=== PATIENT | female | born 1960 | race Caucasian/White ===

== ENCOUNTER 2022-03-07 10:25 | Outpatient (CLI) | payer OTHER, SELFPAY ==
--- NOTE | 2022-03-07 10:45 | CRLHL7_ITS ---
For Patients: As a result of the Century Cures Act, medical imaging exams and procedure reports are released immediately into your electronic medical record. You may view this report before your referring provider. If you have questions, please contact your health care provider. BILATERAL MAMMOGRAM WITH COMPUTER-AIDED DETECTION AND TOMOSYNTHESIS TECHNIQUE: CC and MLO views were obtained. These mammographic images have been obtained using full-field digital technique. These mammographic images were interpreted with the benefit of computer-aided detection. Breast Tomosynthesis was used in this interpretation. COMPARISON FILM: 09/13/2020, 11/17/2018, 09/23/2017. FINDINGS: There are scattered areas of fibroglandular density IMPRESSION: There is no radiographic evidence for malignancy. ASSESSMENT: BI-RADS Category 1: Negative RECOMMENDATION: Routine screening mammogram in 1 year. A lay language report of this examination will be provided to the patient. Kenny Cortez M.D. Diagnostic Radiologist [email or web address] ERVIN/Dictated by: Kenny Cortez MD @ 03/07/2022 11:48:00 AM (Electronically Signed)
== END 2022-03-07 10:26 | disposition home or self-care (01) ==
LOC: MAMMO 10:26
PROVIDERS: PCP Physician Assistant Medical; Visit Provider Physician Assistant Medical
DX: Z12.31 Encounter for screening mammogram for malignant neoplasm of breast (principal)
CPT/HCPCS: 77063; 77067

== ENCOUNTER 2022-10-01 07:14 | Emergency (ER) | payer OTHER, SELFPAY ==
[2022-10-01 07:26] VITALS: BP 140/81; PULSE 97; RESP 24; TEMP 36.4; O2SAT 91; BMI 26.5
--- NOTE | 2022-10-01 07:50 | CRLHL7_ITS ---
For Patients: As a result of the Cures Act, medical imaging exams and procedure reports are released immediately into your electronic medical record. You may view this report before your referring provider. If you have questions, please contact your health care provider. INDICATION: COVID. Dyspnea. COMPARISON: None TECHNIQUE: Single-view portable study FINDINGS: TUBES AND LINES: None. HEART AND MEDIASTINUM: The heart size is normal. The mediastinal contour appears normal for patient age. LUNGS AND PLEURAL SPACES: The lungs appear normal.The pleural spaces are unremarkable. OSSEOUS STRUCTURES: Age-appropriate appearance. No acute focal finding. IMPRESSION: No evidence of active pulmonary disease. Dictated by Paul Nelson MD @ 10/01/2022 8:34:19 AM (Electronically Signed)
--- NOTE | 2022-10-01 07:50 | ED_ITS ---
HPI - General Adult General Chief complaint: Cough <Naz Shook MD - Last Filed: 10/01/22 08:00> Stated complaint: Covid+ Difficulty breathing, sore throat, cough <Naz Shook MD - Last Filed: 10/01/22 08:00> Time Seen by Provider: 10/01/22 07:40 <Naz Shook MD - Last Filed: 10/01/22 08:00> Source: patient <Naz Shook MD - Last Filed: 10/01/22 08:00> Mode of arrival: ambulatory <Naz Shook MD - Last Filed: 10/01/22 08:00> Limitations: no limitations <Naz Shook MD - Last Filed: 10/01/22 08:00> History of Present Illness HPI narrative: 62-year-old female with no history of chronic lung disease, 3 prior COVID vaccinations presents to the emergency department with increased dyspnea, sore throat and cough. Patient has had a cough since July per her report but had worsening of her cough 5 days ago which was Thursday. She was evaluated in urgent care the following day, on Thursday. She was having ear pain and cough. They started her on azithromycin for her cough, she said that it was based on the duration of the cough. She has continued to take this medication. She did swab herself for COVID on Thursday at home, it was negative. She repeated the test yesterday which is Thursday and it was positive. She states that she gets more short of breath with activity and even with talking for periods of time. She is not monitoring her oxygen levels at home. She has no history of chronic lung disease, smoking, COPD or asthma. She has a history of von Willebrand's disease listed in her chart but she denies a prior history of DVT or PE. She does not take anticoagulants. Fever started yesterday, up to 102 at home. No chest pain, no palpitations or rapid heart rate. No nausea, vomiting. No rash. No other pertinent travel. is having similar symptoms. She has has tried Tylenol with temporary improvement. Past medical history notable for hypertension, hyperlipidemia. She takes lisinopril and a statin medication. She has allergies to sulfas and sumatriptan both causing hives. Denies any pertinent surgeries. Socially she denies tobacco use. Family history is notable for with current similar symptoms. ROS is notable for the generalized, HEENT and respiratory symptoms as above. She also endorses significant fatigue, otherwise denies times 12 systems. <Naz Shook MD - Last Filed: 10/01/22 08:00> Related Data Home medications: Home Medications Medication Instructions Recorded Confirmed B-Complex PO 06/05/22 Calcium PO 06/05/22 Cranberry-Vitamin PO 06/05/22 Magnesium PO 06/05/22 Multiple vitamin PO 06/05/22 Potassium PO 06/05/22 ascorbic acid (vitamin C) 1,000 mg 1 g PO DAILY 06/05/22 06/05/22 tablet lisinopril 10 mg tablet mg PO DAILY 06/05/22 06/05/22 simvastatin 20 mg tablet 20 mg PO .Bedtime 06/05/22 06/05/22 Previous Rx's Medication Instructions Recorded ondansetron HCl 4 mg tablet 4 mg PO Q6-8H PRN nausea and 07/16/22 vomiting #20 tabs topiramate 25 mg tablet (Topamax) 25 mg PO BID #180 tabs 07/16/22 ketorolac 10 mg tablet 10 mg PO TID 3 days #9 tabs 07/23/22 escitalopram oxalate 10 mg tablet See Rx Instructions .Route 08/06/22 .COMPLEX #60 tabs [id number] 30 1 cap PO DAILY PRN headache #15 09/18/22 mg-50 mg-325 mg-40 mg capsule caps (Butalbital Compound with Codeine) azithromycin 250 mg tablet See Rx Instructions PO .COMPLEX #6 09/28/22 tabs <Naz Shook MD - Last Filed: 10/01/22 08:00> Allergies/adverse reactions: Allergies Allergy/AdvReac Type Severity Reaction Status Date / Time iodine Allergy Mild Hives Verified 10/01/22 07:25 Sulfa (Sulfonamide Allergy Mild Hives Verified 10/01/22 07:25 Antibiotics) sumatriptan Allergy Mild Hives Verified 10/01/22 07:25 <Naz Shook MD - Last Filed: 10/01/22 08:00> [facility] Medical History: Medical History hemorrhage <Naz Shook MD - Last Filed: 10/01/22 08:00> Family History: Family History Brother Coronary artery disease Sister Coronary artery disease High cholesterol Mother Heart disease High cholesterol Coronary artery disease <Naz Shook MD - Last Filed: 10/01/22 08:00> Social History: Social History Narrative: former smoker Smoking Status: Never smoker Do you use any of these nicotine containing products: None Second hand tobacco smoke exposure: No How often do you have a drink containing alcohol: 2-3 times a week How many standard drinks containing alcohol do you have on a typical day: 1 or 2 How often do you have six or more drinks on one occasion: Never AUDIT-C Alcohol total score: 3 Non-prescribed substance use: denies use Little interest or pleasure in doing things: not at all Feeling down, depressed, or hopeless: not at all service: No <Naz Shook MD - Last Filed: 10/01/22 08:00> Exam Const: Vital Signs, click to edit/add: Vital Signs - 24 hr 10/01/22 07:26 10/01/22 08:50 Temperature 97.6 F Pulse Rate 90 Pulse Rate [Pulse Oximeter] 97 Respiratory Rate 24 Blood Pressure [Ri ght Upper Arm] 140/81 H Pulse Oximetry 91 92 Oxygen Delivery Me thod Room Air <Naz Shook MD - Last Filed: 10/01/22 08:00> Vital Signs, click to edit/add: Vital Signs - 24 hr 10/01/22 07:26 10/01/22 08:50 Temperature 97.6 F Pulse Rate 90 Pulse Rate [Pulse Oximeter] 97 Respiratory Rate 24 Blood Pressure [Ri ght Upper Arm] 140/81 H Pulse Oximetry 91 92 Oxygen Delivery Me thod Room Air <Steven Bain MD - Last Filed: 10/01/22 09:44> Documenting provider has reviewed patient's vital signs: yes <MD Jewell Garcia Last Filed: 10/01/22 08:00> Common normals: no apparent distress <MD Jewell Garcia Last Filed: 0 10/01/22 08:00> General appearance: cooperative and well kempt <MD Jewell Garcia Last Filed: 10/01/22 08:00> HENMT: Common normals: normocephalic <MD Jewell Garcia Last Filed: 10/01/22 08:00> Head and scalp: normocephalic <MD Jewell Garcia Last Filed: 10/01/22 08:00> Face and sinus: normal facial exam <MD Jewell Garcia Last Filed: 10/01/22 08:00> Eye: Common normals: conjunctivae normal <MD Jewell Garcia Last Filed: 10/01/22 08:00> General eye: normal appearance of both eyes <MD Jewell Garcia Last Filed: 10/01/22 08:00> Conjunctiva: conjunctiva(e) normal <MD Jewell Garcia Last Filed: 10/01/22 08:00> Neck & C-Spine: Common normals: no lymphadenopathy <MD Jewell Garcia Last Filed: 10/01/22 08:00> Resp: Common normals: normal respiratory effort, no use of accessory muscles and clear to auscultation bilaterally <MD Jewell Garcia Last Filed: 10/01/22 08:00> Effort & inspection: able to speak in complete sentences <MD Jewell Garcia Last Filed: 10/01/22 08:00> Auscultation: clear to auscultation bilaterally <MD Jewell Garcia Last Filed: 10/01/22 08:00> Other: Fairly good air movement throughout. Observed during exam, oxygen levels ranging between 91-96. <MD Jewell Garcia Last Filed: 10/01/22 08:00> Cardio: Common normals: regular rate, regular rhythm, S1 normal heart sound, S2 normal heart sound, no murmurs and peripheral pulses 2+ throughout <MD Jewell Garcia Last Filed: 10/01/22 08:00> Rate: regular rate <MD Jewell Garcia Last Filed: 10/01/22 08:00> Rhythm: regular rhythm <MD Jewell Garcia Last Filed: 10/01/22 08:00> Heart sounds: S1 normal and S2 normal <MD Jewell Garcia Last Filed: 10/01/22 08:00> Peripheral pulses: pulses 2+ throughout <MD Jewell Garcia Last Filed: 10/01/22 08:00> GI: Common normals: soft to palpation and no hepatosplenomegaly <MD Jewell Garcia Last Filed: 10/01/22 08:00> Palpation: soft and no hepatosplenomegaly <MD Jewell Garcia Last Filed: 10/01/22 08:00> Extremity: Common normals: normal capillary refill and no pedal edema <MD Jewell Garcia Last Filed: 10/01/22 08:00> Neuro: Speech: speech normal <MD Jewell Garcia Last Filed: 10/01/22 08:00> Motor exam: strength 5/5 throughout and no movement abnormalities noted <MD Jewell Garcia Last Filed: 10/01/22 08:00> Psych: Common normals: mental status grossly normal <MD Jewell Garcia Last Filed: 10/01/22 08:00> Appearance: well kempt <MD Jewell Garcia Last Filed: 10/01/22 08:00> Attitude: engaged <MD Jewell Garcia Last Filed: 10/01/22 08:00> Activity/motor behavior: appropriate eye contact <MD Jewell Garcia Last Filed: 10/01/22 08:00> Attention/concentration: attention grossly intact <MD Jewell Garcia Last Filed: 10/01/22 08:00> Insight: insight good <Naz Shook MD - Last Filed: 10/01/22 08:00> Judgement: judgment good <Naz Shook MD - Last Filed: 10/01/22 08:00> Course Vital Signs Vital signs: Initial Vital Signs Temperature 97.6 F 10/01/22 07:26 Temperature Source Temporal Artery Scan 10/01/22 07:26 Pulse Rate 97 10/01/22 07:26 Pulse Rhythm 10/01/22 07:26 Respiratory Rate 24 10/01/22 07:26 Blood Pressure 140/81 H 10/01/22 07:26 Blood Pressure Mean 100 10/01/22 07:26 Blood Pressure Position Supine 10/01/22 07:26 Pulse Oximetry 91 10/01/22 07:26 Oxygen Delivery Method 10/01/22 07:26 Vital Signs Temperature 97.6 F 10/01/22 07:26 Pulse Rate 97 10/01/22 07:26 Respiratory Rate 24 10/01/22 07:26 Blood Pressure 140/81 H 10/01/22 07:26 Pulse Oximetry 91 10/01/22 07:26 Oxygen Delivery Method 10/01/22 07:26 Temperature 97.6 F 10/01/22 07:26 Pulse Rate 90 10/01/22 08:50 Respiratory Rate 24 10/01/22 07:26 Blood Pressure 140/81 H 10/01/22 07:26 Pulse Oximetry 92 10/01/22 08:50 Oxygen Delivery Method 10/01/22 07:26 <Naz Shook MD - Last Filed: 10/01/22 08:00> Initial Vital Signs Temperature 97.6 F 10/01/22 07:26 Temperature Source Temporal Artery Scan 10/01/22 07:26 Pulse Rate 97 10/01/22 07:26 Pulse Rhythm 10/01/22 07:26 Respiratory Rate 24 10/01/22 07:26 Blood Pressure 140/81 H 10/01/22 07:26 Blood Pressure Mean 100 10/01/22 07:26 Blood Pressure Position Supine 10/01/22 07:26 Pulse Oximetry 91 10/01/22 07:26 Oxygen Delivery Method 10/01/22 07:26 Vital Signs Temperature 97.6 F 10/01/22 07:26 Pulse Rate 97 10/01/22 07:26 Respiratory Rate 24 10/01/22 07:26 Blood Pressure 140/81 H 10/01/22 07:26 Pulse Oximetry 91 10/01/22 07:26 Oxygen Delivery Method 10/01/22 07:26 Temperature 97.6 F 10/01/22 07:26 Pulse Rate 90 10/01/22 08:50 Respiratory Rate 24 10/01/22 07:26 Blood Pressure 140/81 H 10/01/22 07:26 Pulse Oximetry 92 10/01/22 08:50 Oxygen Delivery Method 10/01/22 07:26 <Steven Bain MD - Last Filed: 10/01/22 09:44> Medical Decision Making MDM Narrative Medical decision making narrative: Dyspnea on exertion in the setting of COVID. No signs of hypoxia or severe respiratory distress which is reassuring. Pulmonary exam does not show signs of any obvious focal pneumonia. Based on her reported rapid progression in the last 24 hours, I recommend chest x-ray, basic blood work including a D- dimer. She is likely out of the window where any of the oral home treatments would be beneficial as she is currently on day 5 of symptoms. Studies ordered, will hand over care to my partner. <Naz Shook MD - Last Filed: 10/01/22 08:00> Dyspnea on exertion in the setting of COVID. No signs of hypoxia or severe respiratory distress which is reassuring. Pulmonary exam does not show signs of any obvious focal pneumonia. Based on her reported rapid progression in the last 24 hours, I recommend chest x-ray, basic blood work including a D- dimer. She is likely out of the window where any of the oral home treatments would be beneficial as she is currently on day 5 of symptoms. Studies ordered, will hand over care to my partner. Addendum: The patient's D-dimer is at the upper limit of normal, given her symptoms I do not think I am concerned at this point about pulmonary embolus, she does have von Willebrand's but has had a bleeding problem. She has not had a any history of clotting. Her CRP is slightly elevated, white count is normal, her chest x-ray by my read looks unremarkable. I think she has just a significant case of COVID. We discussed using Paxil of id or other antiviral agents and she declined this given after our discussion and mutual decision making the unknown nature of her reaction with von Willebrand's, as well as the fact that she has been ill for about 5 days and she is at the border of whether it would be helpful or not. Rest, fluids, observation, return to primary care as needed. <Steven Bain MD - Last Filed: 10/01/22 09:44> Lab Data Labs: Lab Results 10/01/22 10/01/22 10/01/22 Range/Units 08:17 08:17 08:17 WBC 5.23 (4.50-11.00) K/uL RBC 4.06 (4.00-5.20) m/uL Hgb 12.9 (12.0-16.0) gm/dL Hct 39.2 (33.0-51.0) % MCV 97 (80-100) fL MCH 32 (26-34) pg MCHC 33 (32-36) gm/dL RDW Coeff of Angelica 12.6 (11.5-15.5) % Plt Count 172 (140-440) K/uL Neut % (Auto) 74.8 H (42.0-72.0) % Lymph % (Auto) 9.8 L (20-44) % Thomas % (Auto) 13.6 H (0.0-11.0) % Eos % (Auto) 1.0 (0.0-7.0) % Baso % (Auto) 0.4 (0.0-3.0) % Neut # (Auto) 3.90 (1.7-7.0) K/uL Lymph # (Auto) 0.50 L (0.90-2.90) K/uL Thomas # (Auto) 0.70 (0.00-0.90) K/UL Eos # (Auto) 0.05 (0.00-0.50) K/uL Baso # (Auto) 0.02 (0.00-0.30) K/uL D-Dimer Quant (PE/DVT) 0.52 H (0.00-0.50) ug/ml Sodium 139 (135-149) mmol/L Potassium 3.9 (3.6-5.1) mmol/L Chloride 108 (96-114) mmol/L Carbon Dioxide 22 (20-32) mmol/L BUN 11 (7-30) mg/dL Creatinine 0.5 (0.5-1.5) mg/dL Estimated Creat Clear 51.14 Estimated GFR 105 ml/min Glucose 172 H (60-115) mg/dL Calcium 9.3 (8.4-10.6) mg/dL C-Reactive Protein 5.3 H (0.5-1.0) mg/dL Procalcitonin 0.10 (<0.50) ng/mL <Naz Shook MD - Last Filed: 10/01/22 08:00> Lab Results 10/01/22 10/01/22 10/01/22 Range/Units 08:17 08:17 08:17 WBC 5.23 (4.50-11.00) K/uL RBC 4.06 (4.00-5.20) m/uL Hgb 12.9 (12.0-16.0) gm/dL Hct 39.2 (33.0-51.0) % MCV 97 (80-100) fL MCH 32 (26-34) pg MCHC 33 (32-36) gm/dL RDW Coeff of Angelica 12.6 (11.5-15.5) % Plt Count 172 (140-440) K/uL Neut % (Auto) 74.8 H (42.0-72.0) % Lymph % (Auto) 9.8 L (20-44) % Thomas % (Auto) 13.6 H (0.0-11.0) % Eos % (Auto) 1.0 (0.0-7.0) % Baso % (Auto) 0.4 (0.0-3.0) % Neut # (Auto) 3.90 (1.7-7.0) K/uL Lymph # (Auto) 0.50 L (0.90-2.90) K/uL Thomas # (Auto) 0.70 (0.00-0.90) K/UL Eos # (Auto) 0.05 (0.00-0.50) K/uL Baso # (Auto) 0.02 (0.00-0.30) K/uL D-Dimer Quant (PE/DVT) 0.52 H (0.00-0.50) ug/ml Sodium 139 (135-149) mmol/L Potassium 3.9 (3.6-5.1) mmol/L Chloride 108 (96-114) mmol/L Carbon Dioxide 22 (20-32) mmol/L BUN 11 (7-30) mg/dL Creatinine 0.5 (0.5-1.5) mg/dL Estimated Creat Clear 51.14 Estimated GFR 105 ml/min Glucose 172 H (60-115) mg/dL Calcium 9.3 (8.4-10.6) mg/dL C-Reactive Protein 5.3 H (0.5-1.0) mg/dL Procalcitonin 0.10 (<0.50) ng/mL <Steven Bain MD - Last Filed: 10/01/22 09:44> Discharge Plan Discharge Clinical Impression: COVID <Naz Shook MD - Last Filed: 10/01/22 08:00> Patient Disposition: Home w/ Parent or Adult <Naz Shook MD - Last Filed: 10/01/22 08:00> Condition: Stable <Naz Shook MD - Last Filed: 10/01/22 08:00> Instructions: COVID-19 (Coronavirus Disease 2019) (ED) <Naz Shook MD - Last Filed: 10/01/22 08:00> Additional Instructions: Rest, light activity, Tylenol Advil as needed, return to primary care as needed or ER. <Naz Sohok MD - Last Filed: 10/01/22 08:00> Activity Level: Light activity <Naz Shook MD - Last Filed: 10/01/22 08:00> Light activity <Steven Bain MD - Last Filed: 10/01/22 09:44> Discharge Diet: Regular <Naz Shook MD - Last Filed: 10/01/22 08:00> Regular <Steven Bain MD - Last Filed: 10/01/22 09:44> Prescriptions: No Action ascorbic acid (vitamin C) 1,000 mg tablet 1 g PO DAILY Potassium PO Multiple vitamin PO Magnesium PO Cranberry-Vitamin PO Calcium PO B-Complex PO lisinopril 10 mg tablet PO DAILY simvastatin 20 mg tablet 20 mg PO .Bedtime topiramate [Topamax] 25 mg tablet 25 mg PO BID Qty: 180 3RF Rx Instructions: Take 1 tablet twice a day for migraine prophylaxis ondansetron HCl 4 mg tablet 4 mg PO Q6-8H PRN (Reason: nausea and vomiting) Qty: 20 3RF Rx Instructions: Take 1 tablet every 6-8 hours for migraine and nausea azithromycin 250 mg tablet See Rx Instructions PO .COMPLEX Qty: 6 0RF Rx Instructions: For 250 mg dose pack: take 500 mg today (day 1), then 250 mg for 4 days (days 2-5) PO ketorolac 10 mg tablet 10 mg PO TID 3 Days Qty: 9 1RF Rx Instructions: take 1 tablet at initial onset of migraine; may repeat every 6 hours up to 3 x a day, for up to 3 day. escitalopram oxalate 10 mg tablet See Rx Instructions .ROUTE .COMPLEX Qty: 60 0RF Dose Instruction: TAKE 1 TABLET BY MOUTH DAILY Rx Instructions: TAKE 1 TABLET BY MOUTH DAILY [id number] [Butalbital Compound W/Codeine] [id number] mg capsule 1 cap PO DAILY PRN (Reason: headache) Qty: 15 0RF Rx Instructions: for chronic migraines <Naz Shook MD - Last Filed: 10/01/22 08:00> Follow Up/Referrals: Phoebe Pollock PA-C [Primary Care Provider] - <Naz Shook MD - Last Filed: 10/01/22 08:00> Stand Al[facility]: [facility] Info [facility] <Naz Shook MD - Last Filed: 10/01/22 08:00>
[2022-10-01 08:24] LABS: Basophils Absolute Auto 0.02 K/uL (0.00-0.30); Basophils Percent Auto 0.4 % (0.0-3.0); Eosinophils Absolute Auto 0.05 K/uL (0.00-0.50); Hematocrit 39.2 % (33.0-51.0); Hemoglobin* 12.9 gm/dL (12.0-16.0); Immature Granulocytes Abs Auto 0.02 K/uL (0.00-0.30); Immature Granulocytes Pct Auto 0.4 %; Lymphocytes Percent Auto 9.8 % (20-44); Mean Corpuscular HGB Conc 33 gm/dL (32-36); Mean Corpuscular Hemoglobin 32 pg (26-34); Mean Corpuscular Volume 97 fL (80-100); Monocytes Percent Auto 13.6 % (0.0-11.0); Neutrophils Percent Auto 74.8 % (42.0-72.0); Platelet Count* 172 K/uL (140-440); RDW Coefficient of Variation % 12.6 % (11.5-15.5); Red Blood Count 4.06 m/uL (4.00-5.20); White Blood Count* 5.23 K/uL (4.50-11.00)
[2022-10-01 08:36] LABS: Slide Review Reflex No
[2022-10-01 08:41] LABS: D Dimer Quantitative* 0.52 ug/ml (0.00-0.50)
[2022-10-01 08:44] LABS: Chloride* 108 mmol/L (96-114); Potassium* 3.9 mmol/L (3.6-5.1); Sodium* 139 mmol/L (135-149)
[2022-10-01 08:46] LABS: Creatinine* 0.5 mg/dL (0.5-1.5); Est. Creatinine Clearance* 51.14; Estimated Glomerular Filt Rate 105 ml/min
[2022-10-01 08:47] LABS: Blood Urea Nitrogen* 11 mg/dL (7-30); Carbon Dioxide* 22 mmol/L (20-32); Glucose* 172 mg/dL (60-115)
[2022-10-01 08:48] LABS: Calcium* 9.3 mg/dL (8.4-10.6)
[2022-10-01 08:50] VITALS: PULSE 90; O2SAT 92
[2022-10-01 08:50] LABS: C Reactive Protein* 5.3 mg/dL (0.5-1.0)
== END 2022-10-01 09:21 | disposition home or self-care (01) ==
PROVIDERS: Family Medicine; Emergency Provider Family Medicine; PCP Physician Assistant Medical
DX: U07.1 COVID-19 (principal)
CPT/HCPCS: 36415; 71045; 80048; 84145; 85025; 85379; 86140; 99284

== ENCOUNTER 2023-02-26 11:07 | Outpatient (CLI) | payer OTHER, SELFPAY | END 2023-02-26 11:08 | disposition home or self-care (01) | PROVIDERS: PCP Physician Assistant Medical; Visit Provider Physician Assistant Medical | DX: Z00.00 Encounter for general adult medical examination without abnormal findings (principal); I10 Essential (primary) hypertension; R74.8 Abnormal levels of other serum enzymes; R79.82 Elevated C-reactive protein (CRP); E78.5 Hyperlipidemia, unspecified; F41.9 Anxiety disorder, unspecified | CPT/HCPCS: 80053; 82043; 82570; 84443 ==

== ENCOUNTER 2023-04-09 12:18 | Outpatient (CLI) | payer OTHER, SELFPAY | END 2023-04-09 12:19 | disposition home or self-care (01) | PROVIDERS: PCP Physician Assistant Medical; Visit Provider Physician Assistant | DX: M79.89 Other specified soft tissue disorders (principal); R79.82 Elevated C-reactive protein (CRP); R74.8 Abnormal levels of other serum enzymes; I10 Essential (primary) hypertension; E11.9 Type 2 diabetes mellitus without complications | CPT/HCPCS: 84550 ==

== ENCOUNTER 2023-05-06 12:03 | Outpatient (CLI) | payer OTHER, SELFPAY | END 2023-05-06 12:04 | disposition home or self-care (01) | LOC: NFLDREF 05-08 06:43 | PROVIDERS: PCP Physician Assistant Medical; Referring Provider Physician Assistant Medical; Visit Provider Physician Assistant | DX: R30.0 Dysuria (principal); N39.0 Urinary tract infection, site not specified | CPT/HCPCS: 87086 ==

== ENCOUNTER 2023-05-28 11:21 | Outpatient (CLI) | payer OTHER, SELFPAY | END 2023-05-28 11:22 | disposition home or self-care (01) | LOC: NFLDREF 05-29 05:40 | PROVIDERS: PCP Physician Assistant Medical; Referring Provider Physician Assistant Medical; Visit Provider Physician Assistant Medical | DX: R30.0 Dysuria (principal); R31.9 Hematuria, unspecified | CPT/HCPCS: 87086; 87186 ==

== ENCOUNTER 2023-07-16 12:57 | Outpatient (CLI) | payer OTHER, SELFPAY ==
--- NOTE | 2023-07-16 13:20 | CRLHL7_ITS ---
For Patients: As a result of the Century Cures Act, medical imaging exams and procedure reports are released immediately into your electronic medical record. You may view this report before your referring provider. If you have questions, please contact your health care provider. BILATERAL SCREENING MAMMOGRAM WITH COMPUTER-AIDED DETECTION TECHNIQUE: CC and MLO views were obtained. These mammographic images have been obtained using full-field digital technique. These mammographic images were interpreted with the benefit of computer-aided detection. COMPARISON FILM: 03/07/22, 09/13/20, 11/17/18. FINDINGS: There are scattered areas of fibroglandular density. IMPRESSION: There is no radiographic evidence for malignancy. ASSESSMENT: BI-RADS Category 1: Negative RECOMMENDATION: Routine screening mammogram in 1 year. A lay language report of this examination will be provided to the patient. KENNY LARRY M.D. Diagnostic Radiologist [email or web address] Transcribed: 07/17/2023, 2:[address]/Dictated by: Kenny Larry MD @ 07/17/2023 9:38:00 AM (Electronically Signed)
== END 2023-07-16 12:58 | disposition home or self-care (01) ==
LOC: MAMMO 12:57
PROVIDERS: PCP Physician Assistant Medical; Visit Provider Physician Assistant Medical
DX: Z12.31 Encounter for screening mammogram for malignant neoplasm of breast (principal)
CPT/HCPCS: 77067

== ENCOUNTER 2024-05-26 09:19 | Outpatient (CLI) | payer OTHER, SELFPAY | END 2024-05-26 09:20 | disposition home or self-care (01) | PROVIDERS: PCP Physician Assistant Medical; Visit Provider Physician Assistant Medical | DX: E11.9 Type 2 diabetes mellitus without complications (principal); E78.5 Hyperlipidemia, unspecified; R82.90 Unspecified abnormal findings in urine; Z13.29 Encounter for screening for other suspected endocrine disorder | CPT/HCPCS: 80053; 80061; 82043; 82570; 84443; 87086 ==

== ENCOUNTER 2024-06-06 09:57 | Outpatient (CLI) | payer OTHER, SELFPAY ==
--- NOTE | 2024-06-06 10:15 | CRLHL7_ITS ---
For Patients: As a result of the Century Cures Act, medical imaging exams and procedure reports are released immediately into your electronic medical record. You may view this report before your referring provider. If you have questions, please contact your health care provider. INDICATION: bloating, elevated LFTs COMPARISON: none TECHNIQUE: Real time cotto scale imaging and color Doppler analysis was performed of the right upper quadrant. FINDINGS: The patient`s liver is of normal size and has diffusely increased echogenicity. There is a normal appearance of the hepatic IVC and proximal abdominal aorta. There is no evidence of ascites. The gallbladder is of normal size and there is no evidence of intraluminal stones or sludge. The gallbladder wall measures 1.4 mm in thickness. The common bile duct is of normal size and measures 3.4 mm in diameter at the level of the nilda hepatis. The visualized pancreas appears normal. There is no evidence of a stone or hydronephrosis within the right kidney. The right kidney measures 10.3 cm in length. IMPRESSION: Moderately severe diffuse hepatic steatosis with patchy areas of focal fatty sparing adjacent to the gallbladder. Remainder unremarkable. Dictated by Kenny Cortez MD @ 06/06/2024 12:31:01 PM (Electronically Signed)
== END 2024-06-06 09:58 | disposition home or self-care (01) ==
PROVIDERS: PCP Physician Assistant Medical; Visit Provider Physician Assistant Medical
DX: R74.8 Abnormal levels of other serum enzymes (principal); K76.0 Fatty (change of) liver, not elsewhere classified
CPT/HCPCS: 76705

== ENCOUNTER 2024-06-30 09:18 | Outpatient (CLI) | payer OTHER, SELFPAY | END 2024-06-30 09:19 | disposition home or self-care (01) | LOC: NFLDREF 07-02 19:09 | PROVIDERS: PCP Physician Assistant Medical; Referring Provider Physician Assistant Medical; Visit Provider Physician Assistant Medical | DX: R82.90 Unspecified abnormal findings in urine (principal) | CPT/HCPCS: 87086 ==

== ENCOUNTER 2024-08-03 13:38 | Outpatient (CLI) | payer OTHER, SELFPAY ==
--- NOTE | 2024-08-03 14:00 | CRLHL7_ITS ---
For Patients: As a result of the Century Cures Act, medical imaging exams and procedure reports are released immediately into your electronic medical record. You may view this report before your referring provider. If you have questions, please contact your health care provider. BILATERAL SCREENING MAMMOGRAM WITH COMPUTER-AIDED DETECTION AND TOMOSYNTHESIS TECHNIQUE: CC and MLO views were obtained. These mammographic images have been obtained using full-field digital technique. These mammographic images were interpreted with the benefit of computer-aided detection. Breast Tomosynthesis was used in this interpretation. COMPARISON FILM: 07/16/23, 03/07/22, 09/13/20. FINDINGS: There are scattered areas of fibroglandular density. IMPRESSION: There is no radiographic evidence for malignancy. ASSESSMENT: BI-RADS Category 1: Negative RECOMMENDATION: Routine screening mammogram in 1 year. A lay language report of this examination will be provided to the patient. Kenny Cortez M.D. Diagnostic Radiologist [email or web address] SP/Dictated by: Kenny Cortez MD @ 08/08/2024 12:29:00 PM (Electronically Signed)
--- NOTE | 2024-08-03 14:30 | CRLHL7_ITS ---
For Patients: As a result of the Century Cures Act, medical imaging exams and procedure reports are released immediately into your electronic medical record. You may view this report before your referring provider. If you have questions, please contact your health care provider. DXA BONE MINERAL DENSITY STUDY Reason for exam: Screening. Current height (in): 65. Weight (lb): 150. Menopause age: 50. Ethnicity: White. 1. Have you had a previous hip or vertebral fracture? No. 2. Have you had any fractures during your adult life which did not result from significant trauma (e.g., auto accident)? No. 3. Did either of your parents have a hip fracture? No. 4. Do you smoke? No. 5. Have you ever taken Glucocorticoids? No. 6. Do you have rheumatoid arthritis? No. 7. Do you have secondary osteoporosis? No. 8. Do you drink 3 or more alcoholic drinks per day? No. 9. Are you being treated for osteoporosis? No. 10. Have you ever taken any of the following medications: Actonel, Evista, Fosamax, Miacalcin, Reclast, Boniva, Forteo, HRT (i.e., estrogen/hormone therapy), Protelos, Prolia, Vitamin D, Calcium, other ??? please specify. ANSWER: Yes, vitamin D and calcium. 11. Do you have any of the following medical conditions: Anorexia or bulimia, asthma or emphysema, end stage renal disease, hyperparathyroidism, any seizure disorders, cancer, inflammatory bowel diseases, hysterectomy, other ??? please specify. ANSWER: No. 12. What was your maximum height (inches)? 66. 13. Do you perform weight bearing exercise regularly? Yes. 14. Do you regularly consume dairy products? Yes. 15. Do you drink caffeinated beverages? Yes. 16. At what age did your period start? 12. 17. Are you premenopausal? No. 18. How many full-term pregnancies have you had? 2. 19. Have you ever missed your period for more than 6 months in a row (not including or menopause)? No. TECHNIQUE: Bone mineral density study was performed using the [facility]. FINDINGS: The results of the study expressed as bone mineral density (BMD) are as follows: Lumbar spine L1, L3, L4: BMD: 1.068 g/cm2. T-score: 0.1. Z-score: 2.0 Neck Left: BMD: .602 g/cm2. T-score: -2.2. Z-score: -0.6 Right: BMD: 0.615 g/cm2. T-score: -2.1. Z-score: -0.5 Total Left: BMD: 0.843 g/cm2. T-score: -0.8. Z-score: 0.5 Right: BMD: 0.863 g/cm2. T-score: -0.6. Z-score: 0.7 IMPRESSION: Osteopenia. *Comparison exams done prior to 01/2020 were performed on different unit, eflow. FRAX 10-year Fracture Risk Major Osteoporotic Fracture: 12% Hip Fracture: 2.0% Reported Risk Factors: [place] () Neck BMD=0.602, BMI=25.0 Catherine Novoa M.D. Diagnostic Radiologist [email or web address]/[email or web address] [email or web address]/Dictated by: Catherine Novoa MD @ 08/05/2024 8:58:00 AM (Electronically Signed)
== END 2024-08-03 13:39 | disposition home or self-care (01) ==
LOC: MAMMO 13:39
PROVIDERS: PCP Physician Assistant Medical; Visit Provider Physician Assistant Medical
DX: Z12.31 Encounter for screening mammogram for malignant neoplasm of breast (principal); Z13.820 Encounter for screening for osteoporosis; M85.89 Other specified disorders of bone density and structure, multiple sites; Z78.0 Asymptomatic menopausal state
CPT/HCPCS: 77063; 77067; 77080

== ENCOUNTER 2025-03-20 08:51 | Outpatient (CLI) | payer OTHER, SELFPAY | END 2025-03-20 08:52 | disposition home or self-care (01) | LOC: NFLDREF 03-21 13:15 | PROVIDERS: PCP Physician Assistant Medical; Referring Provider Physician Assistant Medical; Visit Provider Physician Assistant Medical | DX: N30.01 Acute cystitis with hematuria (principal); B96.20 Unspecified Escherichia coli [E. coli] as the cause of diseases classified elsewhere | CPT/HCPCS: 87086 ==

== ENCOUNTER 2025-03-28 11:45 | Outpatient (CLI) | payer OTHER, SELFPAY | END 2025-03-28 11:46 | disposition home or self-care (01) | LOC: NFLDREF 03-30 15:54 | PROVIDERS: PCP Physician Assistant Medical; Referring Provider Physician Assistant Medical; Visit Provider Family Medicine | DX: R31.9 Hematuria, unspecified (principal); N39.0 Urinary tract infection, site not specified | CPT/HCPCS: 87086 ==

== ENCOUNTER 2025-05-02 09:03 | Outpatient (CLI) | payer OTHER, SELFPAY | END 2025-05-02 09:04 | disposition home or self-care (01) | LOC: NFLDREF 05-03 09:16 | PROVIDERS: PCP Physician Assistant Medical; Referring Provider Physician Assistant Medical; Visit Provider Physician Assistant Medical | DX: N39.0 Urinary tract infection, site not specified (principal); B96.20 Unspecified Escherichia coli [E. coli] as the cause of diseases classified elsewhere | CPT/HCPCS: 87086 ==

== ENCOUNTER 2025-06-01 10:46 | Outpatient (CLI) | payer OTHER, SELFPAY | END 2025-06-01 10:47 | disposition home or self-care (01) | PROVIDERS: PCP Physician Assistant Medical; Visit Provider Family Medicine | DX: E11.9 Type 2 diabetes mellitus without complications (principal); E78.5 Hyperlipidemia, unspecified; I10 Essential (primary) hypertension; M79.672 Pain in left foot; N39.0 Urinary tract infection, site not specified | CPT/HCPCS: 80053; 80061; 82043; 82570; 84550; 87086 ==

== ENCOUNTER 2025-07-31 08:56 | Outpatient (CLI) | payer OTHER, SELFPAY | END 2025-07-31 08:57 | disposition home or self-care (01) | LOC: LKVREF 08:57 | PROVIDERS: PCP Physician Assistant Medical; Visit Provider Physician Assistant Medical | DX: E11.9 Type 2 diabetes mellitus without complications (principal) | CPT/HCPCS: 82607 ==